=== PATIENT | male | born 1950 ===

== ENCOUNTER 2018-05-05 00:54 | Day surgery (SDC) | payer MEDICARE, OTHER ==
[~2018-05-05] VITALS: Ht 180.3 cm; Wt 81.6 kg
[~2018-05-05 00:54] MED LIST: AMLO-105 PO
[2018-05-05] MEDS ORDERED: PROPOFOL EMUL(*) 10MG/ML 20 ML 20 ML ONE (07:20)
[2018-05-05] MEDS ORDERED: NORMOSOL R SOLN(*) 1000 ML BAG 1,000 ML IV PRN (10:10)
[2018-05-05] MEDS ORDERED: LIDOCAINE/SOD BICARB 8.4% SYR ID ONE (10:10)
[2018-05-05 10:16] VITALS: BP 144/96
[2018-05-05 11:36] VITALS: BP 144/96
--- NOTE | 2018-05-05 11:39 | Short(Outpt) Discharge Summary ---
Discharge Summary Reason for Hosp/Final Diag: (1) Colon cancer screening Status: Chronic Hospital Course & Plan: Colonoscopy completed without any problems. (2) Lipoma of colon Status: Chronic Departure Discharge to: Home Discharge Instructions Home Meds Reported Medications Amlodipine Besylate/Benazepril (LOTREL 10-20 MG CAPSULE) 1 Each Capsule, 1 CAP PO QDAY, CAPSULE 02/21/15 Diet: Regular Special Instructions: Your colonoscopy was completed without problems and your prep was excellent (Good Job!!). I didn't find any abnormalities in your colon at all. I recommend that your next colonoscopy be in 10 years. GIBSON NEWTON MD May 05, 2018 11:39
[2018-05-05 12:00] VITALS: BP 107/80
[2018-05-05 12:21] VITALS: BP 115/93
[2018-05-05 12:23] VITALS: BP 115/84
== END 2018-05-05 12:25 | disposition home or self-care (01) ==
LOC: OR 00:54
PROVIDERS: ATTEND Surgery
DX: Z12.11 Encounter for screening for malignant neoplasm of colon (principal); Z87.19 Personal history of other diseases of the digestive system
CPT/HCPCS: 00812; G0121; J2704

== ENCOUNTER 2018-11-11 02:12 | Day surgery (SDC) | payer MEDICARE, OTHER ==
[~2018-11-11] VITALS: Ht 180.3 cm; Wt 78.9 kg
[2018-11-11] VITALS (11 sets, daily range): BP systolic 93–135; BP diastolic 63–89
[2018-11-11] MEDS ORDERED: MIDAZOLAM 2 MG/2 ML VIAL IVP PRN (06:45)
[2018-11-11] MEDS ORDERED: PREGABALIN 150 MG CAPSULE PO ONE (06:45)
[2018-11-11] MEDS ORDERED: NORMOSOL R SOLN(*) 1000 ML BAG 1,000 ML IV PRN (06:45)
[2018-11-11] MEDS ORDERED: ACETAMINOPHEN 500 MG TAB PO ONE (06:45)
[2018-11-11] MEDS ORDERED: FAMOTIDINE 20 MG TAB PO ONE (06:45)
[2018-11-11] MEDS ORDERED: LIDOCAINE/SOD BICARB 8.4% SYR ID ONE (06:45)
[2018-11-11] MEDS ORDERED: ceFAZolin(*) 2GM/D5W 50ML 50 ML IVPB ONE (06:45)
[2018-11-11] MEDS ORDERED: SUGAMMADEX SOD 200 MG/2 ML SDV ONE (07:31)
[2018-11-11] MEDS ORDERED: LIDOCAINE MPF 1% 5 ML VIAL ONE (07:31)
[2018-11-11] MEDS ORDERED: ONDANSETRON 4 MG/2 ML VIAL ONE (07:31)
[2018-11-11] MEDS ORDERED: ROCURONIUM BROM 10 MG/ML 10 ML ONE (07:31)
[2018-11-11] MEDS ORDERED: DEXAMETHASONE SOD 4 MG/ML VIAL ONE (07:31)
[2018-11-11] MEDS ORDERED: PROPOFOL EMUL(*) 10MG/ML 20 ML 20 ML ONE (07:31)
[2018-11-11] MEDS ORDERED: fentaNYL CITR 250 MCG/5 ML AMP ONE (07:32)
[2018-11-11] MEDS ORDERED: KETAMINE HCL-NS 50 MG/5 ML SYR ONE (07:34)
--- NOTE | 2018-11-11 07:49 | EKG ---
FACILITY: [facility] [place] PATIENT NAME: YARA GILLIS : [id number] MR: [id number] V: [id number] EXAM DATE: ORDERING PHYSICIAN: TROY MEDLEY TECHNOLOGIST: Test Reason : Pre-op Blood Pressure : / mmHG Vent. Rate : 084 BPM Atrial Rate : 084 BPM P-R Int : 154 ms QRS Dur : 104 ms QT Int : 380 ms P-R-T Axes : -10 -33 040 degrees QTc Int : 449 ms Sinus rhythm Nonspecific interventricular conduction delay Left axis deviation Abnormal ECG No previous ECGs available Confirmed by BLAIR SHANNON ([id number]) on 11/11/2018 9:12:35 AM Referred By: Confirmed By:BLAIR SHANNON
[2018-11-11 08:03] LABS: PLATELET COUNT, AUTOMATED 265 K/uL (150-450)
[2018-11-11] MEDS ORDERED: ROPIVACAINE 0.5% 20 ML VIAL ONE (08:16)
[2018-11-11] MEDS ORDERED: OXYC-854 PO (11:54)
[2018-11-11] MEDS ORDERED: DOCU100C56 PO (11:54)
--- NOTE | 2018-11-11 11:56 | Short(Outpt) Discharge Summary ---
Discharge Summary Reason for Hosp/Final Diag: (1) Left inguinal hernia Status: Chronic Hospital Course & Plan: Robotic LIH repair completed without problems. Departure Discharge to: Home, Self Care Discharge Instructions Home Meds Active Scripts Docusate Sodium (DOC-Q-LACE) 100 Mg Capsule, 1 CAP PO BID, #30 CAPSULE 0 Refills Prov:GIBSON NEWTON MD 11/11/18 Oxycodone Hcl/Acet 5/325 Mg (ENDOCET 5-325 TABLET) 1 Each Tablet, 1 TAB PO Q4H PRN for PAIN, #20 TAB 0 Refills Prov:GIBSON NEWTON MD 11/11/18 Reported Medications Amlodipine Besylate/Benazepril (LOTREL 10-20 MG CAPSULE) 1 Each Capsule, 1 CAP PO QHS, CAPSULE 02/21/15 Follow up Referrals: General Surgery - 12/01/18 @ Surgery, General with GIBSON NEWTON MD You have a follow up appointment scheduled with Dr. Newton on 12/01/18, at 4:15pm. Diet: Regular Activity: No Heavy Lifting Special Instructions: You may remove the white surgical dressings on 11/13/18, then you can shower. After showering, leave the incisions open to air but leave the steristrips in place until they fall off on their own. Do not immerse the incisions for 2 weeks. Avoid any activity that involves straining or lifting more than 10 pounds for 2 weeks after surgery. GIBSON NEWTON MD Nov 11, 2018 11:56
--- NOTE | 2018-11-11 12:05 | Post Operative Progress Note ---
Post Operative Progress Note Date: Nov 11, 2018 Time: 11:57 Surgeon: Candy Dictation number: [id number] Anesthesia: GETA by Dr. Gillis Pre-Op Diagnosis: LIH Post-Op Diagnosis: LIH, indirect Findings: Large indirect LIH containing sigmoid colon Procedure(s): Robotic LIH repair Specimen Removed:(May be N/A): None Complications: None Fluids: See anesthesia record Estimated Blood Loss: Minimal Date OP Note Dictated: Nov 11, 2018 Time OP Note Dictated: 11:58 GIBSON NEWTON MD Nov 11, 2018 12:05
--- NOTE | 2018-11-11 13:05 | OPERATIVE REPORT 1 ---
EVENT DATE: November 11, 2018 SURGEON: Torsten Gupta M.D. ANESTHESIOLOGIST: Elieser Lagos MD ANESTHESIA: General endotracheal. PREOPERATIVE DIAGNOSIS Left inguinal hernia. POSTOPERATIVE DIAGNOSIS Left inguinal hernia, indirect. PROCEDURE PERFORMED Robotic left inguinal hernia repair. COMPLICATIONS None. CONDITION Stable. ESTIMATED BLOOD LOSS Minimal. FINDINGS Patient had a very large indirect left inguinal hernia that contained a large loop of his sigmoid colon. The colon was viable without any ischemic insult. INDICATIONS This is a 68-year-old gentleman who presented to my office with a large left groin bulge that extended down into his left hemiscrotum. This was consistent with a left inguinal hernia and he was requesting to have it repaired and provided consent for robotic left inguinal hernia repair. DESCRIPTION OF PROCEDURE The patient was brought to the operating room, placed supine on the operating table. General endotracheal anesthesia was administered and his abdomen was prepped and draped in sterile fashion. Time out was completed and I injected the left subcostal skin with 0.5 ropivacaine plain and made a transverse 8 mm incision in the left subcostal skin in about the mid clavicular line and then inserted a Veress needle in the peritoneal cavity, insufflated the abdomen to a pressure of 15 mmHg. Next, I inserted an 8 mm robotic optical trocar with the camera and focused in through this incision into the insufflated abdomen under direct visualization without any problems. The robotic camera was inserted through this port and inspection of the groins revealed a large left inguinal hernia containing some sigmoid colon but the right groin was normal. There was no hernia on the right. I placed another 8 mm robotic port in the right upper abdomen in the mid clavicular line and then a third 8 mm robotic port in the epigastric midline. Next, I inserted a left sided piece of ProGrip mesh in the peritoneal cavity as well as an absorbable V-Loc suture and then I had the patient placed in Trendelenburg, docked and targeted the robot, inserted the instruments and then scrubbed out and went to the console. I attempted to reduce the sigmoid colon from the inguinal canal and it would come out somewhat but it was obviously adherent inside the canal. I then divided the peritoneum from the midline over to medial to the anterior superior iliac spine on the left and then dissected the preperitoneal space all the way down and I cleaned off the ileopubic tract lateral to the cord structures and cleaned off the pubic tubercle and Elder's ligament medial to the cord structures. I then began working on the hernia sac and completely, with some effort, skeletonized the cord structures and was able to ultimately get the sac from the cord structures in its entirety. I clearly identified the vas deferens and the gonadal vessels and these were preserved. I stripped back to the peritoneum and the peritoneal edge wall back way proximal to where the gonadal vessels and the vas deferens splay so there is plenty of room for mesh without the peritoneal edge being under the mesh. Once this was completed, I placed the mesh in the preperitoneal space, unfurled it so it covered the entire myopectineal arch and it laid nice and flat and looked very good when I was all done and then I sewed the peritoneal incision together with the running V-Loc suture. There were a couple of small holes in the hernia sac and these were closed with [id number] 3-0 Vicryl sutures. I then removed all of the needles and sutures from the patient's abdominal cavity. The instruments were removed. The robot was undocked. The abdomen was desufflated and the ports were removed and the skin closed with 4-0 Monocryl subcuticular suture. Skin was cleaned, dried, and Steri-Strips were applied followed by sterile surgical dressings. The patient was awakened and extubated in the operating room and transported to the recovery room in stable condition, having tolerated the procedure without any apparent problems. EVE
--- NOTE | 2018-11-11 13:28 | NUR ---
1328- SBAR REPORT FROM Truman REYNOSO RN, DECREASED O2 TO 2LPM VIA NC, REMAINS A BIT DROWSY, BROTHER JOSE AT BEDSIDE 1340- PT TOLERATING WATER, DECREASED O2 TO 0.5LPM VIA NC 1342- PT PLACED ON RA 1344- SATS DROPPED TO 84% ON RA, PT DEEP BREATHING SATS KRISTAL TO 92% WILL CONTINUE TO MONITOR 1350- REVIEWED D/C INSTRUCTIONS WITH PT AND BROTHER JOSE, PT TOLERATING APPLE SAUCE 1405- INCENTIVE SPIROMETER EDUCATION, PT MAINTAINING SATS ON RA 1410- INCREASED IV FLUIDS, BROTHER JOSE LEFT TO SENIOR LOAN OFFICER PRESCRIPTIONS 1420- CONSULT DR. CHAPMAN ON O2, ADVISED TO ORDER AEROBIKA AND KEEP MONITORING, ADVISED TO TO INSTRUCT PT TO NOT BE ALONE AND TO USE AEROBIKA PRIOR TO NAPS AND BED AND TO PRACTICE DEEP BREATHING THROUGHOUT THE DAY 1424- RT IN ROOM TO EDUCATE PT ON AEROBIKA, PT CONTINUOUS TO MAINTAIN SATS ON RA 1430- VSS 1435- PT TOLERATING CHEESE AND CRACKERS
--- NOTE | 2018-11-11 14:48 | NUR ---
1448- PT REPORTS FEELING BETTER, WILL TRY TO DO ORTHOSTATICS AT 1500
--- NOTE | 2018-11-11 15:03 | NUR ---
1503- SL IV IN LEFT HAND 1505- ORTHO VSS SEE VS CHARTS TO DETAILS
--- NOTE | 2018-11-11 15:13 | NUR ---
1513- PT BACK FROM RESTROOM, PT REPORTS UNABLE TO VOID, PT TO GET DRESSED AND TRY VOIDING AGAIN IN A LITTLE WHILE
--- NOTE | 2018-11-11 15:40 | NUR ---
1540- PT AMBULATORY TO RESTROOM, REPORTS VOID X 1 WITHOUT ISSUE 1545- D/C BOTH IVS WITH CATH INTACT, PRESSURE DRESSINGS APPLIED WITH GAUZE AND COBAND 1550- PT AMBULATORY TO PARKING LOT, ACCOMPANIED BY BROTHER JOSE AND MONO DURON
== END 2018-11-11 12:48 | disposition home or self-care (01) ==
LOC: OR 02:12
PROVIDERS: ATTEND Surgery
DX: K40.90 Unilateral inguinal hernia, without obstruction or gangrene, not specified as recurrent (principal); I10 Essential (primary) hypertension
CPT/HCPCS: 49650; 85025; 93005; 94667; A9270; J1100; J2001; J2250; J2370; J2405; J2704; J2795; J3010; J3490; S2900; C1781; J0690